=== PATIENT | male | born 1965 | race Caucasian/White ===

== ENCOUNTER 2016-12-25 16:44 | Emergency (ER) | payer BC, OTHER ==
[~2016-12-25] VITALS: Ht 175.3 cm; Wt 89.0 kg
[2016-12-25 16:46] VITALS: Ht 175.3 cm; Wt 89.0 kg
--- NOTE | 2016-12-25 17:36 | RADRPT ---
PROCEDURE: XR Ankle. CLINICAL INDICATION: Left ankle pain. TECHNIQUE: Three views of the left ankle. COMPARISON: None available. FINDINGS: There is no fracture or dislocation of the ankle. A fracture of the fifth metatarsal base is noted. The ankle mortise appears intact in this nonstressed study. The joint spaces are preserved. Ther e is no significant soft tissue swelling. IMPRESSION: 1. No fracture or dislocation of the left ankle. 2. Fifth metatarsal base fracture. RPTAT: HTAR .Glynn Duggan MD, MD Date Time Electronically viewed and signed by .Glynn Duggan MD, on 12/25/2016 17:36 .R/
--- NOTE | 2016-12-25 17:37 | RADRPT ---
PROCEDURE: XR Foot. CLINICAL INDICATION: Pain. TECHNIQUE: Three views of the left foot. COMPARISON: None available. FINDINGS: There is a minimally distracted transverse fracture of the fifth metatarsal base. The joint spaces are preserved. There is no significant soft tissue swelling. There are arterial calcifications. IMPRESSION: 1. Minimally distracted transverse fracture of the fifth metatarsal base. RPTAT: HTAR .Glynn Duggan MD, MD Date Time Electronically viewed and signed by .Glynn Duggan MD, on 12/25/2016 17:37 .R/
[2016-12-25] MEDS ORDERED: TRAM50TA2 PO (17:55)
--- NOTE | 2016-12-25 18:05 | ERD ---
ER Documentation Chief Complaint Date/Time DATE: 12/25/16 TIME: 18:02 Chief Complaint left foot pain/injury HPI This patient is a 51-year-old male with no significant medical history presenting to the emergency department for left lateral foot pain near the base of the fifth metatarsal after missing the bottom rung of the ladder and stepping off the 3 days ago. Pain is aggravated by walking. Pain is alleviated by rest. Patient is taken no medication for relief of symptoms. The patient denies head injury, other injuries, or other symptoms at this time. ROS All systems reviewed and are negative except as per history of present illness. Medications Home Meds Active Scripts Tramadol HCl (Tramadol HCl) 50 Mg Tablet, 50 MG PO Q4 Y for PAIN, #15 TAB Prov:RAMILA THORPE PA-C 12/25/16 Allergies Allergies: Coded Allergies: Penicillins (Verified Allergy, 03/03/11) aspirin (Verified Allergy, 03/03/11) PMhx/Soc History of Surgery: Yes (NASAL POLYPS) Anesthesia Reaction: No Hx Neurological Disorder: No Hx Respiratory Disorders: Yes (ASTHMA) Hx Cardiac Disorders: No Hx Psychiatric Problems: No Hx Miscellaneous Medical Probl: No Hx Alcohol Use: Yes Hx Substance Use: No Hx Tobacco Use: No FmHx Noncontributory for chief complaint Physical Exam Vitals Vital Signs Date Time Temp Pulse Resp B/P Pulse Ox O2 Delivery O2 Flow Rate FiO2 12/25/16 16:46 97.5 92 18 175/90 97 Physical Exam Const: The patient is resting comfortably in no acute distress. Head: Atraumatic Eyes: Normal Conjunctiva ENT: Normal External Ears, Nose and Mouth. Neck: Full range of motion..~ No meningismus. Resp: Clear to auscultation bilaterally Cardio: Regular rate and rhythm, no murmurs Abd: Soft, non tender, non distended. Normal bowel sounds Skin: No petechiae or rashes Back: No midline or flank tenderness Ext: No cyanosis, or edema. The patient has some tenderness palpation of the base of the fifth metatarsal and slightly limited range of motion of the toe secondary to pain. All other extremities are normal on exam. Neur: Awake and alert Psych: Normal Mood and Affect Results 24 hrs [place] [id number] Radiology Main Line: [phone] DIAGNOSTIC IMAGING REPORT Patient: LINA LOVETT : 1965 Age: 51 Sex: M MR #: [id number] DOS: 12/25/16 0000 Ordering MD: RAMILA THORPE PA-C Location: [facility] Room/Bed: PROCEDURE: XR Ankle. CLINICAL INDICATION: Left ankle pain. TECHNIQUE: Three views of the left ankle. COMPARISON: None available. FINDINGS: There is no fracture or dislocation of the ankle. A fracture of the fifth metatarsal base is noted. The ankle mortise appears intact in this nonstressed study. The joint spaces are preserved. There is no significant soft tissue swelling. IMPRESSION: 1. No fracture or dislocation of the left ankle. 2. Fifth metatarsal base fracture. RPTAT: HTAR .Glynn Duggan MD, MD Date Time Electronically viewed and signed by .Glynn Duggan MD, on 12/25/2016 17:36 .R/ CC: RAMILA THORPE PA-C [place] [id number] Radiology Main Line: [phone] DIAGNOSTIC IMAGING REPORT Patient: LINA LOVETT : 1965 Age: 51 Sex: M MR #: [id number] DOS: 12/25/16 0000 Ordering MD: RAMILA THORPE PA-C Location: [facility] Room/Bed: PROCEDURE: XR Foot. CLINICAL INDICATION: Pain. TECHNIQUE: Three views of the left foot. COMPARISON: None available. FINDINGS: There is a minimally distracted transverse fracture of the fifth metatarsal base. The joint spaces are preserved. There is no significant soft tissue swelling. There are arterial calcifications. IMPRESSION: 1. Minimally distracted transverse fracture of the fifth metatarsal base. RPTAT: HTAR .Glynn Duggan MD, Date Time Electronically viewed and signed by .Glynn Duggan MD, MD on 12/25/2016 17:37 .R/ CC: RAMILA THORPE PA-C Procedures/MDM 51-year-old male presents secondary to complaints of left foot pain after injury 3 days ago. On physical examination the patient's vitals are within normal limits except slightly elevated blood pressure. I believe this is secondary to pain. Patient's blood pressure was elevated (>120/80) but appears stable without evidence of hypertension emergency or urgency. The patient was counseled about the risks of hypertension and urged to pursue outpatient monitoring and therapy within a week with their primary care physician. Radiology results reviewed and showed a fracture at the base of the fifth metatarsal. Radiology results were shared with the patient. The patient was splinted in the department and he was neurovascularly intact post splint application. The patient was given crutches with training in the department. The patient declined pain medication in the department. All questions and concerns were addressed. The patient is to have close follow-up with orthopedics and he was given information to do so. At this time I will suspicion for significant displaced fracture, compartment syndrome, deep tissue infection, or other emergent conditions. The patient agrees with the discharge plan and diagnosis. Strict ER return precautions were discussed. Departure Diagnosis: Primary Impression: Toe fracture, left Encounter type: initial encounter Toe: lesser toe Fracture type: closed Phalanx: unspecified phalanx Fracture alignment: nondisplaced Qualified Code : S92.505A - Closed nondisplaced fracture of phalanx of lesser toe of left foot , unspecified phalanx, initial encounter Condition: Fair Patient Instructions: Fracture, Toe [Closed] Referrals: COMMUNITY CLINICS YOU HAVE RECEIVED A MEDICAL SCREENING EXAM AND THE RESULTS INDICATE THAT YOU DO NOT HAVE A CONDITION THAT REQUIRES URGENT TREATMENT IN THE EMERGENCY DEPARTMENT. FURTHER EVALUATION AND TREATMENT OF YOUR CONDITION CAN WAIT UNTIL YOU ARE SEEN IN YOUR DOCTORS OFFICE WITHIN THE NEXT 1-2 DAYS. IT IS YOUR RESPONSIBILITY TO MAKE AN APPOINTMENT FOR FOLOW-UP CARE. IF YOU HAVE A PRIMARY DOCTOR --you should call your primary doctor and schedule an appointment IF YOU DO NOT HAVE A PRIMARY DOCTOR YOU CAN CALL OUR PHYSICIAN REFERRAL HOTLINE AT IF YOU CAN NOT AFFORD TO SEE A PHYSICIAN YOU CAN CHOSE FROM THE FOLLOWING [facility] [address] [facility] [address] [facility] [address] [facility] [address] [facility] [address] [facility]. [facility] [address] [facility]. [facility] Urgent Care 7 a.m.- 11 p.m. Every Day of the Week NO APPOINTMENT OR AUTHORIZATION NEEDED [facility] Hours: Mon-Fri 9:00 AM - 5:00 PM Additional Instructions: Please follow-up with orthopedic doctor as soon as possible. Follow up with your PCP within the next 1-3 days for a more thorough evaluation and a possible referral to a specialist. Return the the emergency department immediately if symptoms worsen or change. If you have any questions regarding medications, ask your pharmacist or us before you leave. If any adverse reactions, occur while taking your medications, discontinue the treatment and return to the emergency department immediately. If any new or worsening symptoms, uncontrolled fevers, or other unexplained symptoms occur, return to the emergency department immediately. Take your medications as directed, and complete the entire course of treatment. RAMILA THORPE PA-C December 25, 2016 18:05
[2016-12-25 18:46] VITALS: BP 172/84; PULSE 72; RESP 16; TEMP 98.4
== END 2016-12-25 18:47 | disposition home or self-care (01) ==
LOC: FTE 16:44
DX: S92.355A Nondisplaced fracture of fifth metatarsal bone, left foot, initial encounter for closed fracture (principal); J45.909 Unspecified asthma, uncomplicated; X58.XXXA Exposure to other specified factors, initial encounter; Y92.9 Unspecified place or not applicable
CPT/HCPCS: 29515; 73610; 73630; 99283; L3260